=== PATIENT | male | born 1975 | race Caucasian/White ===

== ENCOUNTER 2018-09-30 12:17 | Inpatient (IN) | payer MEDICAID, OTHER ==
[~2018-09-30] VITALS: Ht 185.4 cm; Wt 99.8 kg
[~2018-09-30 12:17] MED LIST: HYDROCODON-ACE1 EA10 PO; KEFLEX500 MG PO
[2018-09-30] MEDS ORDERED: ADVIL200 M1 PO (12:30)
--- NOTE | 2018-09-30 16:15 | NUR ---
PT ARRIVED TO FLOOR VIA STRETCHER. REPORTS PAIN 6/10 IN RUQ. DENEIS NAUSEA. ORIENTED TO ROOM. PT IN 4 POINT SHACKLES. 1 GAURD AT BEDSIDE. CALL LIGHT IN REACH. MORPHIN ADMINSITERED. D5LR @ 85 INFUSING. IN SITE WNL. BOWEL TONES ACTIVE.
--- NOTE | 2018-09-30 17:29 | NUR ---
PT REPORTS NO PAIN IN RUQ AT THIS TIME. NO N/V. CALL LIGHT IN REACH
--- NOTE | 2018-09-30 17:49 | NUR ---
PATIENT IN BED WATCHING TV. ONE GUARD IN ROOM. VITAL SIGNS AND I&O DONE. CALL LIGHT WITHIN REACH. NO OTHER NEEDS AT THIS TIME
--- NOTE | 2018-09-30 18:49 | NUR ---
RUQ PAIN CONTROLLED WITH PRN MORPHINE. NO NAUSEA, SCD'S IN PLACE. 1 GAURD AT BEDSIDE. D5LR AT 85ML/HR.
--- NOTE | 2018-09-30 21:00 | NUR ---
COOP WITH ASSESSMENT, C/O H/A, ICE TO BACK OF NECK AND COLD WET TOWEL TO FOREHEAD GIVEN, LIGHTS DIMMED AND NOISE REDUCED IN ROOM. RA, IVF INFUSING W/O PROBLEMS, NO C/O ABD PAIN OR N/V. GIA 4 POINT SHCKLES. 1 EOCI OFFICER IN ROOM
--- NOTE | 2018-09-30 22:04 | NUR ---
VITALS AND I&OS DONE AND CHARTED. BEDSIDE TABLE AND CALL LIGHT IN REACH. NEITHER GUARD OR PT NEED ANYTHING AT THIS TIME.
--- NOTE | 2018-09-30 23:00 | NUR ---
MEDICATED WITH TYLENOL 650MG PO PER 8/10 H/A.
--- NOTE | 2018-10-01 01:00 | NUR ---
NO FURTHER C/O H/A, N/V OR ABD PAIN. RESTING, EYES CLOSED, ON 4X SHACKLES, 1 EOCI GUARD IN ROOM
--- NOTE | 2018-10-01 01:11 | NUR ---
MEDICATED WITH TORADOL 30MG IV C/O 12/31 ABD PAIN, NO N/V MUCH RELIEVED H/A, NASAL CONGESTION PRESENT, AWAKE, SCDS IN PLACE, 4X SCHACKLES IN PLACE, 1 EOCI GUARD
--- NOTE | 2018-10-01 02:32 | NUR ---
VITALS AND I&OS DONE AND CHARTED. BEDSIDE TABLE AND CALL LIGHT IN REACH. PT NEEDS NOTHING MORE AT THIS TIME.
--- NOTE | 2018-10-01 03:55 | NUR ---
RESTING, EYES CLOSED, NO C/O PAIN, NO N/V, [address]
--- NOTE | 2018-10-01 05:49 | NUR ---
AWAKE, WATCHING TV, C/O ABD 5/10 PAIN, MEDICATED WITH SCHEDULED TYLENOL 650MG UP TO BR, VOIDING QS URINE, NPO X MEDS W SIPS. WEARING 4X POINT SHACKLES. 1 EOCI GUARD IN ROOM
--- NOTE | 2018-10-01 08:29 | NUR ---
PATIENT WAS RESTING, OPENED EYES TO NAME, PATIENT STATES THAT PAIN IS CURRENTLY 6/10 AND REFUSED MORPHINE DUE TO IT CAUSING NAIDU YESTERDAY. TORADOL GIVEN IV AT THIS TIME. PATIENT IS ALERT AND ORIENTED AND HAS TENDERNESS IN THE RUQ. HE REMAINS NPO AT THIS TIME AND HAS 1 GUARD AT BEDSIDE.
--- NOTE | 2018-10-01 09:09 | NUR ---
PATIENT RESTING IN BED. ONE GUARD IN ROOM. VITAL SIGNS AND I&O DONE. CALL LIGHT WITHIN REACH. NO OTHER NEEDS AT THIS TIME
--- NOTE | 2018-10-01 09:37 | NUR ---
PATIENTS PAIN IS CURRENTLY TOLERABLE, WILL GIVEN SCHEDULED TYLENOL AT 1048
--- NOTE | 2018-10-01 10:42 | NUR ---
MED REC COMPLETE. PATIENT TAKES NO CHRONIC MEDICATIONS, BUT WHEN HE HAS PAIN HE STATES HE TAKES 6 IBUPROFEN (1,200 MG).
--- NOTE | 2018-10-01 11:04 | NUR ---
PATIENT STATES PAIN LEVEL IS AT A 2/10, SCHEDULED TYLENOL GIVEN PO AT THIS TIME
--- NOTE | 2018-10-01 13:25 | NUR ---
PT TO OR AT THIS TIME ACCOMPANIED BY 1 GUARD.
--- NOTE | 2018-10-01 17:25 | NUR ---
10/01/18 1725 Eva Elizalde 1716 PATIENT ARRIVES TO PACU UNRESPONSIVE TO PAIN. RESP EVEN AND UNLABORED, BUT SNORING, VERY STIFF JAW, DOES NOT CHANGE WITH JAW THRUST. SATS >95%. 1721 PATIENT OPENS EYES TO VERBAL STIMULI, DOES NOT FOLLOW COMMANDS. ORAL AIRWAY REMOVED. RESP EVEN AND UNLABORED, OXYGEN MASK OFF, ROOM AIR SATS 95%. 1724 PATIENT AWAKE, ANSWERS QUESTIONS APPROPRIATELY, BUT STILL DROWSY. RESP EVEN AND UNLABORED, SATS >95% ON ROOM AIR. DENIES PAIN AT REST. DENIES NAUSEA. ONLY COMPLAINS OF DIZZINESS. PATIENT LAUGHING AND TALKING WITH STAFF.
--- NOTE | 2018-10-01 18:00 | NUR ---
PATIENT MOVED OVER FROM THE STRETCHER TO THE BED, SHACKLES PLACED ON THE PATIENT BY THE GUARD IN THE ROOM. HE HAS 4 SCOPE SITES TO HIS ABDOMEN AND A MARIFER DRAIN. LAP SITES ARE INTACT WITH STERI STRIPS AND SOME BLOODY DRAINAGE PRESENT. PATIENT IS VERY PAINFUL AND STATES PAIN IS CURRENTLY 9/10 WITH NAUSEA AND A SEVERE DRY MOUTH. WATER PROVIDED FOR HIM AT THIS TIME WITH 8MG OF ZOFRAN IV. PULSE OX, SCDS, AND IV FLUID ON AT THIS TIME.
--- NOTE | 2018-10-01 18:47 | NUR ---
DRAINAGE PRESENT TO PATIENT'S ABDOMEN CURRENTLY, WILL CONTINUE TO MONITOR DRAINAGE, PATIENT DENIES NAUSEA AT THIS TIME AND IS TOLERATING JELLO, 7UP, CRACKERS AND BROTH.
--- NOTE | 2018-10-01 19:12 | NUR ---
SHIFT REPORT RECEIVED FROM DAYSHIFT MALVIN BOCANEGRA.CPOX IN PLACE, O2 SAT AND HR WNL. PT DROWSY, RR EVEN AND UNLABORED. PT FROM EOCI, GUARD IN ROOM. FDC RESTRAINTS X4 IN PLACE. LAP SITES X4 NOTED WITH STERI STRIPS, SCANT SANGUINEOUS DRAINAGE NOTED. CALL LIGHT IN REACH. PT DENIES NEEDS.
--- NOTE | 2018-10-01 20:42 | NUR ---
ASSESSMENT COMPLETE. VSS. SCHEDULED MEDS GIVEN (SEE EMAR). PT A/OX4, RATES PAIN 9/10. 0.5 MG IV DILAUDID GIVEN FOR IMMEDIATE PAIN RELIEF ALONG WITH ONE NORCO TABLET (SEE EMAR). IV FLUIDS INFUSING PER MD ORDERS, SITE WNL. PT DENIES FURTHER NEEDS. EOCI RESTRAINTS X4 IN PLACE, GUARD IN ROOM. CALL LIGHT IN REACH.
--- NOTE | 2018-10-01 21:27 | NUR ---
POST OP VSS. PT RATES PAIN TOLERABLE IF SITTING STILL. RR EVEN AND UNLABORED. CALL LIGHT IN REACH, GUARD IN ROOM.
--- NOTE | 2018-10-01 22:19 | NUR ---
I&OS DONE AND CHARTED. PER PT REQUEST I GAVE HIS SOME CRACKERS AND JELLO. BEDSIDE TABLE AND CALL LIGHT IN REACH. PT OR THE GUARD NEED ANYTHING AT THIS TIME.
--- NOTE | 2018-10-01 22:49 | NUR ---
SCHEDULED IV ABX INFUSING (SEE EMAR). IV SITE WNL. PT REPORTS PAIN IS TOLERABLE AND RATES 3/10 WHEN RESTING IN BED. GUARG IN ROOM. LUNCH BOX PROVIDED PER PT REQUEST. CALL LIGHT IN REACH.
--- NOTE | 2018-10-02 01:38 | NUR ---
PT REPORTS 8/10 PAIN, 2 NORCO ADMINSITERED. VSS, I&O'S RECORDED. MARIFER DRAINED, 10 MLS SANGUINEOUS OUTPUT. NO NEW CONCERNS. REMAINING FOOD TRAY AT BEDSIDE PER PT REQUEST. CALL LIGHT IN REACH. IV FLUIDS INFUSING PER MD ORDERS, SITE WNL. GUARD IN ROOM.
--- NOTE | 2018-10-02 03:46 | NUR ---
pt reports 8 pain. 1 motrin administered. no further needs. guard in room. call light in reach.
--- NOTE | 2018-10-02 05:31 | NUR ---
PT HAD A IDA OVERALL. PT A/OX4, PAIN CONTROLLED WITH PO PAIN MEDICATION. LAP SITES X4 OPEN TO AIR WITH STERI STRIPS, SCANT DRY SANGUINEOUS DRAINAGE, MARIFER DRAIN IN PLACE. RESTRAINTS X4, EOCI GUARD IN ROOM. PT USES CALL LIGHT APPROPERIATELY. REGULAR DIET, TOLERATING WELL, BOWEL TONES ACTIVE.
--- NOTE | 2018-10-02 05:55 | NUR ---
PT MOSTLY SLEEPY, OPENS EYES STATES HE IS "OK" WHEN ASK HE WAS GROANING, STATED HE THOUGHT HE HAD A HEADACHE WHEN HE WOKE, BUT IT IS OK. IV FLUIDS INFUSING PER ORDER. GUARD AT BEDSIDE.
--- NOTE | 2018-10-02 06:31 | NUR ---
SCHEDULED ABX INFUSING, IV SITE WNL. VSS AND i&O'S RECORDED. TOOTHPAST PROVIDED PER PT REQUEST. CALL LIGHT IN REACH, GUARD IN ROOM.
--- NOTE | 2018-10-02 07:30 | NUR ---
PATIENT REPORT RECEIVED FROM AVA COOMBS, PATIENT IS ON RA AND HAS A PULSE OX ON. HE IS ASLEEP WITH 1 GUARD AT HIS BEDSIDE. RAILS UP ON THE BED AND BED IS IN THE LOW POSITION.
--- NOTE | 2018-10-02 07:38 | NUR ---
Pt resting awake in bed, hob elevated. Luis drain intact to mid frontal neck. Personal supplies and call light within reach. Pt denies sob, chest pain and uncontrolled neck pain at this time. Call light wihtin reach.
--- NOTE | 2018-10-02 08:02 | NUR ---
PATIENT'S BREAKFAST ORDERED
--- NOTE | 2018-10-02 08:33 | NUR ---
PATIENT STATES THAT ABDOMINAL PAIN IS AT A 8/10 CURRENTLY 2 NORCO PO GIVEN AT THIS TIME. PATIENT IS ALERT AND ORIENTED CURRENTLY WITH 1 GUARD AT BEDSIDE. 4 LAP SITES ARE INTACT WITH STERI STRIPS SOME BLOODY DRAINAGE PRESENT.
--- NOTE | 2018-10-02 09:19 | NUR ---
PATIENT IN BED WATCHING TV. ONE GUARD IN ROOM. VITAL SIGNS AND I&O DONE. CALL LIGHT WITHIN REACH. NO OTHER NEEDS AT THIS TIME
--- NOTE | 2018-10-02 10:05 | NUR ---
patient's pain tolerable when he is sitting still in bed, pain elevates immensly when he gets up to the bathroom. patient refused to ambulate in the hallway at this time. teaching done regarding lizzy drain, 5mls of sero sang drainage emptied at this time.
--- NOTE | 2018-10-02 11:03 | NUR ---
LAB IN THE ROOM DRAWING BLOOD, PATIENTS PAIN CURRENTLY AT A 6, MOTRIN PO GIVEN
--- NOTE | 2018-10-02 11:06 | OR ---
[facility] [address], [place] [address] Signed DATE OF OPERATION: 10/01/2018 SURGEON: Astrid Hardin MD PREOPERATIVE DIAGNOSES: 1. Acute calculous cholecystitis. 2. Prior laparotomy (childhood). POSTOPERATIVE DIAGNOSES: 1. Acute calculous cholecystitis. 2. Extensive intraabdominal adhesions in midline. PROCEDURES PERFORMED: 1. Laparoscopic adhesiolysis. 2. Laparoscopic cholecystectomy with an intraoperative cholangiogram prolonged, complicated, difficult. 3. Surgeon-directed fluoroscopy. ANESTHESIA: General endotracheal; Katerin Chapa CRNA and local 10 mL of 0.25% Marcaine with epinephrine. INDICATIONS: This 43-year-old white man is a prisoner at [facility] and a patient of Dr. Peter. He underwent gallbladder ultrasound yesterday as an outpatient, was found to have acute cholecystitis as well as gallstones, and was admitted given fluid resuscitation, intravenous antibiotics, and parenteral pain medication, now to undergo cholecystectomy. Of note, he had laparotomy in childhood and has had incisional hernia repair by me in the past in the region of the umbilicus at that part of the incision. He understands the risk of bleeding, infection, bile duct injury, need for open procedure, and other unforeseen complications and wished to proceed. FINDINGS: Entry to the abdomen was a challenge on the basis of his prior midline incision. He was found to have extensive adhesions to the midline requiring adhesiolysis. There were bowel loops that were contiguous with the abdominal wall in the region inferior to the umbilicus. Some of these were taken down, but mostly left as is. There was no sign of obstruction. No injury occurred to the bowel despite extensive adhesiolysis to allow for safe entry to the abdomen for laparoscopy. Electronically Signed By: ASTRID HARDIN MD 10/02/18 1106 PATIENT NAME: NARINDER FAN OPERATIVE REPORT DATE OF : 77 REPORT #: [id number] PHYSICIAN: ASTRID HARDIN MD PCP: MAICOL PETER MD REPORT IS CONFIDENTIAL AND NOT TO BE RELEASED WITHOUT AUTHORIZATION [facility] [address], [place] [address] Signed As regard to the gallbladder, it was markedly distended and inflamed. The liver looked normal. Cholangiogram was normal. Gallbladder had at least one large stone and bits of stone debris as well as markedly inflamed mucosa. DESCRIPTION OF PROCEDURE: The patient was brought to the operating room, given a general endotracheal anesthetic. Preoperative antibiotic Ancef has been given. Sequential compression device stockings applied and heparin subcutaneously administered. After satisfactory general endotracheal anesthesia, the abdomen was clipped and prepared with chlorhexidine solution and draped sterilely. He had elaborate tattooing of his abdomen and torso in general. A long midline incision was noted extending from below the xiphoid to just below the umbilicus. After sterile prep and draping with a chlorhexidine solution, an infraumbilical incision several centimeters below the umbilicus itself (outside his tattoo and also outside the previous incision), attempts were made to enter the abdomen through the lower abdominal area. An open attempt was not successful as there appeared to be dense adhesions in the inner table of the fascial layer. This site was abandoned. An epigastric incision was made somewhat above previous incision site in the midline. Fascia was divided and the properitoneal space was encountered and entry to the abdomen was not forthcoming likely in the area of the falciform ligament. Still seeking safe entry to the abdominal cavity, a supraumbilical incision was made preliminary to a Jessi technique. The properitoneal space developed and with all due care apparent peritoneal cavity entry was made. Adhesions were noted. Using an angled 10-mm laparoscope, careful insinuation into the peritoneal cavity was undertaken ultimately allowing for intraabdominal inspection showing a tensely distended gallbladder and chronic and acute inflammatory change. The liver appeared normal. Attempts were then made to pass a trocar under direct visualization in the epigastric incision site. Despite efforts to do so, it could not be well visualized. On that basis, a 5 mm port was placed in the right side of the abdomen, replacing the laparoscope to that site and allowing for lysis of adhesions in the area of the umbilicus. Noted were dense adhesions of omentum, but also bowel loops. Care was taken to be certain there was no injury to the bowel on previous attempts through that site both with blunt and camera technique. There appeared to be none. Extensive lysis of adhesions was undertaken in the midline to allow for safe port site entries. Once satisfied, there was no bowel injury or other contraindication to proceeding in that field. Under direct visualization, the 10 mm port was placed in the supraumbilical port site skirting densely adhered bowel to the abdominal wall in that area. The regular 30 Electronically Signed By: ASTRID HARDIN MD 10/02/18 1106 PATIENT NAME: NARINDER FAN OPERATIVE REPORT DATE OF : 77 REPORT #: [id number] PHYSICIAN: ASTRID HARDIN MD PCP: MAICOL PETER MD REPORT IS CONFIDENTIAL AND NOT TO BE RELEASED WITHOUT AUTHORIZATION [address] [address] Signed degree laparoscope, 10 mm in size, was placed in the supraumbilical port site. Another 5 mm port was placed in the right anterior axillary line. This allowed for elevation of the gallbladder. There were adhesions of the gallbladder and gallbladder so tensely distended it required decompression with a needle device. Once this was complete, the puncture site was grasped and elevated cephalad. Using the laparoscopic grasper, the infundibulum was retracted laterally and using blunt and electrocautery dissection, edematous peritoneum over the inflamed gallbladder was dissected free, ultimately identifying well the cystic duct. Further dissection showed a cystic arterial branch. Clips were applied to it for hemostasis. Once the cystic duct was well identified, a clip was applied across the gallbladder cystic duct junction and transverse choledochotomy was made in the cystic duct. Egress of clear yellow bile was noted. Using the Brush type cholangiocatheter, intraoperative cholangiography was undertaken showing free flow of contrast in the biliary tree with prompt emptying into the duodenum. There was no sign of filling defect or biliary anomaly. There was a pancreatogram incidentally noted. The Catheter was removed and the cystic duct was triply clipped and divided and dissection undertaken in retrograde fashion using electrocautery.The cystic arterial branches that had been clipped were very hemostatic. The gallbladder was dissected free in a retrograde fashion, ultimately placed in an Endobag, and attempts at extraction through the supraumbilical site were unsuccessful. Not wanting to further traumatize the surrounding area where bowel loops were relatively close, the Endobag was extracted through the epigastric port instead. . The gallbladder was opened on the back table and found to have at least one large stone, biliary debris, and acute on chronic inflammatory change. Irrigation was undertaken in the subhepatic space showing no sign of bile leak, bleeding, or other problems. Given the extent of dissection and so forth, a 7-mm flat Jamison drain was placed in the subhepatic space, secured to the skin with nylon suture. The catheter had been brought out at the right lower quadrant incision site. It was later attached to bulb suction. Irrigation was undertaken of the subhepatic space. There was no sign of bile leak, bleeding, or other problems. The trocars were removed under direct visualization Electronically Signed By: ASTRID HARDIN MD 10/02/18 1106 PATIENT NAME: NARINDER FAN OPERATIVE REPORT DATE OF : 77 REPORT #: [id number] PHYSICIAN: ASTRID HARDIN MD PCP: MAICOL PETER MD REPORT IS CONFIDENTIAL AND NOT TO BE RELEASED WITHOUT AUTHORIZATION [facility] [address] [place] [id number] Signed allowing for reapproximation of the fascial edges on the infraumbilical, supraumbilical, and epigastric port sites with 0 Vicryl suture as well as 0 PDS suture. All wounds were copiously irrigated and skin closed with interrupted 3-0 Vicryl. Steri-Strips were applied. The patient was ultimately extubated and transferred to recovery room in good condition having suffered no complications. Sponge, needle, and instrument counts reported as correct x3. The operation was very prolonged, complicated and difficult in large part related to lysis of adhesions to allow entry to the abdomen for laparoscopic resection. Operative time was 4 x usual. Astrid Hardin MD JM/MODL /[id number] cc: Maicol Peter MD [facility] Copies: MAICOL PETER MD ~ Electronically Signed By: ASTRID HARDIN MD 10/02/18 1106 PATIENT NAME: NARINDER FAN OPERATIVE REPORT DATE OF : 77 REPORT #: [id number] PHYSICIAN: ASTRID HARDIN MD PCP: MAICOL PETER MD REPORT IS CONFIDENTIAL AND NOT TO BE RELEASED WITHOUT AUTHORIZATION
--- NOTE | 2018-10-02 11:06 | HP ---
[facility] [address] [place], [place] [address] Signed ADMISSION DATE: 09/30/2018 REASON FOR ADMISSION: Acute calculous cholecystitis. HISTORY OF PRESENT ILLNESS: This 43-year-old man is a prisoner at [facility] and known to me from the past having undergone complex incisional hernia repair in the past two years or so. He tells me that he had the onset of severe right upper abdominal pain yesterday in the evening and [facility] and [facility] and today sent to the [facility] for ultrasound. An ultrasound was performed confirming gallstones and findings consistent with acute calculous cholecystitis. I was called from the Radiology Department asking for what disposition might be appropriate and recommended direct admission rather than return to [facility] or Emergency Room evaluation. In the room, he is now quietly watching TV with a guard at the side and manacled as appropriate. He says he is still having right upper abdominal pain, but no nausea. He is not hungry. PAST MEDICAL HISTORY: Includes a complex incisional hernia repair. This was in the past two years or so. He denies any prior history of hepatitis and has no ongoing medical problems he says. REVIEW OF SYSTEMS: He denies any shortness of breath or chest pain. He has had no dysphagia, dysuria or hematemesis. Denies any blood per rectum. He does have concurrent reflux type symptoms with substernal burning pain. PHYSICAL EXAMINATION: GENERAL: Well-developed, well-nourished, muscular man, who speaks [place] well. He does not look systemically toxic. NECK: Trachea is midline. CHEST: Clear. HEART: Regular without murmur. ABDOMEN: Nondistended and generally soft. He has marked tenderness in the right subcostal area, but no mass. There is no ascites. Elaborate tattoos are noted on the Electronically Signed By: ASTRID HARDIN MD 10/02/18 1106 PATIENT NAME: NARINDER FAN HISTORY AND PHYSICAL DATE OF : 77 REPORT #: [id number] PHYSICIAN: ASTRID HARDIN MD PCP: ETTA PETER MD REPORT IS CONFIDENTIAL AND NOT TO BE RELEASED WITHOUT AUTHORIZATION [facility] [address] [place], [place] [address] Signed abdomen and elsewhere. EXTREMITIES: Show no clubbing, cyanosis, or edema. LABORATORY DATA: Lab studies have not yet been drawn, but will be soon. I have not reviewed the ultrasound findings, only the report that has been verbally administered, which includes gallstones. ASSESSMENT: The patient has clinical findings of acute cholecystitis and ultrasound is suggestive of that as well. He is admitted for further evaluation and care to include fluid resuscitation, IV antibiotics, parenteral pain medications and ultimately cholecystectomy. PLAN: I discussed with Pathophysiology the problem with him and recommendation of cholecystectomy. A laparoscopic or open approach may be advisable depending on clinical findings. It is notable that he has a long midline incision that required an incisional hernia repair. I am uncertain of the reason for the laparotomy, but I believe it was related to trauma of some kind in the past. I will further investigate that and review old records. Astrid Hardin MD JM/MODL /[id number] cc: Dr. Peter [facility] Copies: ~ Electronically Signed By: ASTRID HARDIN MD 10/02/18 1106 PATIENT NAME: NARINDER FAN HISTORY AND PHYSICAL DATE OF : 77 REPORT #: [id number] PHYSICIAN: ASTRID HARDIN MD PCP: ETTA PETER MD REPORT IS CONFIDENTIAL AND NOT TO BE RELEASED WITHOUT AUTHORIZATION
--- NOTE | 2018-10-02 11:31 | NUR ---
patient ambulated in the hallway to the nurses station from his room, he is painful with ambulation but tolerated walk fair. patient is steady on his feet and continues to rate pain at 6/10 or above.
--- NOTE | 2018-10-02 13:02 | NUR ---
DOCTOR WILFRED CALLED AND UPDATED ON PATIENT'S LABS, MD COMING IN TO SEE THE PATIENT AND POSSIBLY SEND HIM HOME. HE HAS BEEN EATING 100% OF HIS FOOD AT MEAL TIME.
--- NOTE | 2018-10-02 13:11 | NUR ---
PATIENT RESTING IN BED. ONE GUARD IN ROOM. VITAL SIGNS AND I&O DONE. CALL LIGHT WITHIN REACH. NO OTHER NEEDS AT THIS TIME
--- NOTE | 2018-10-02 14:19 | NUR ---
DOCTOR HARDIN IN THE ROOM TO EVALUATE PATIENT AT THIS TIME, PATIENT'S MARIFER PULLED AND IV SALINE LOCKED AND PATIENT SHOWEN HOW TO USE THE IS. IS UP TO 1750 AT THIS TIME WITH NO C/O PAIN DURING USE. GUARD REMAINS AT BEDSIDE AND PAIN CURRENTLY AT A 6/10.
--- NOTE | 2018-10-02 15:02 | NUR ---
IV ABX GIVEN AT THIS TIME, PULSE OX ON AND IV SALINE LOCKED.
--- NOTE | 2018-10-02 15:18 | NUR ---
PATIENT UP IN THE HALLWAY AMBULATING WITH GUARD. PATIENT TOLERATING PAIN WELL WHILE UP IN THE HALLWAY AND MADE IT 1 LAP AROUND THE NURSES STATION.
--- NOTE | 2018-10-02 17:11 | NUR ---
PATIENT MOVED UP IN BED AND DINNER GIVEN TO HIM AT THIS TIME, PATIENTS PAIN CURRENTLY AT A 5/10 WHICH IS TOLERABLE AT THIS TIME. HE DENIES ANY NAUSEA, LAP SITES ARE CDI WITH STERI STRIPS OLD DRAINAGE NOTED
--- NOTE | 2018-10-02 18:38 | NUR ---
PATIENT HAS HAD BETTER PAIN CONTROL THIS AFTERNOON, HE HAS BEEN RECEIVING TYLENOL AND MOTRIN SCHEDULED SINCE DOCTOR WILFRED'S VISIT THIS AFTERNOON AND THEN NORCO PRN BREAKTHROUGH PAIN. CURRENTLY THE PATIENT RATES HIS PAIN AT A 4/10 WHICH IS THE LOWEST I HAVE HAD HIM RATE HIS PAIN. PATIENT HAS BEEN USING HIS IS EFFECTIVLY AND AMBULATING IN THE HALLWAY WITH HIS GUARD. ABDOINAL INCISIONS X4 ARE CDI WITH STERI STRIPS AND THE MARIFER WAS REMOVED THIS AFTERNOON BY DOCTOR WILFRED. HE HAS ACTIVE BOWEL TONES AND HAD A VERY SMALL BM TODAY.
--- NOTE | 2018-10-02 19:00 | NUR ---
SHIFT REPORT RECEIVED FROM PATRICIAALARNALDO BOCANEGRA. PT AWAKE IN BED, RR EVEN AND UNLABORED. GUARD IN ROOM, [facility]I RESTRAINTS X4 IN PLACE. PT DENIES NEEDS AT THIS TIME. LAP SITES X4 NOTED, NO NEW DRAINAGE. CALL LIGHT IN REACH.
--- NOTE | 2018-10-02 21:30 | NUR ---
ASSESSMENT COMPLETE. SCHEDUELED MEDICATIONS GIVE, SEE EMAR. PT RATES PAIN 4/10 AND STATES, "I FEEL GOOD RIGHT NOW". LAP SITES OPEN TO AIR, WITH EXCEPTION OF ONE LAP SITE COVERED BY BANDAID. NO DRAINING OR SHADOWING NOTED. PT SALINE LOCKED, A/OX4. RESTRAINTS X4 IN PLACE, GUARD IN ROOM.
--- NOTE | 2018-10-02 21:38 | NUR ---
VITALS AND I&OS DONE AND CHARTED. BEDSIDE TABLE AND CALL LIGHT IN REACH.
--- NOTE | 2018-10-02 23:14 | NUR ---
PRIMARY RN REQUESTED THIS RN GIVE MEDS. MEDICATIONS GIVEN (SEE MAR). pt RATED PAIN 4/10. GUARD AT BEDSIDE. pt AND GUARD AMBULATING IN PRESTON.
--- NOTE | 2018-10-03 00:49 | NUR ---
THIS RN SAW GUARD AND PT IN HALLWAY WALKING TO NURSE'S STATION. PT STATES, "I NEED SOMETHING TO GO TO THE BATHROOM, I FEEL CONSTIPATED". WARM PRUNE JUICE GIVEN, PT ALSO INSTRUCTED TO GO ON A WALK AFTER FINISHING PRUNE JUICE. PT VERBALIZED UNDERSTANDING. NO FURTHER NEEDS, CALL LIGHT IN REACH.
--- NOTE | 2018-10-03 01:05 | NUR ---
PT AMBULATING IN HALLWAY WITH EOCI GUARD. CHONG X4 IN PLACE.
--- NOTE | 2018-10-03 01:30 | NUR ---
ASSESSMENT COMPLETE. SCHEDULED TYLENOL GIVEN. NO NEW CONCERNS, LAP SITES X4 OPEN TO AIR, DRY SANGUINEOUS SCANT DRAINAGE NOTED WITH STERI STRIPS. PT RATES PAIN 1-2/10. NO NEEDS AT THIS TIME, PT APPEARS CONTENT. PT CONTINUES TO EXPRESS INABILITY TO HAVE BM. ICE CREAM GIVEN PER PT REQUEST TO TRY AND STIMULATE BM. CALL LIGHT IN REACH.
--- NOTE | 2018-10-03 04:29 | NUR ---
scheduled motrin adninistered. pt reports tolerable 3/10 pain. no further needs. guard in room. call light in reach.
--- NOTE | 2018-10-03 06:07 | NUR ---
VITALS AND I&OS DONE AND CHARTED. FRESH ICE WATER GIVEN. BEDSIDE TABLE AND CALL LIGHT IN REACH. EMPTIED GARBAGE. TOOK BREAKFAST ORDER. I WILL CALL IT IN. PT NEEDS NOTHING MORE AT THIS TIME.
--- NOTE | 2018-10-03 07:33 | NUR ---
Pt awake, alert and oriented x3. Pt on ra, resp even and non labored. Pt reports abd pain is tolerable. Personal supllies and call light within reach. One vice squad police officer in room with pt. No needs at this time.
--- NOTE | 2018-10-03 08:13 | NUR ---
PT HAD A GREAT NIGHT. PAIN VERY WELL CONTROLLED WITH SCHEDULED TYLENOL AND MOTRIN. NO NORCO NEEDED. PT A/OX4, AMBULATES SBA. PT EOCI, GUARD IN ROOOM W/ X4 EOCI RESTRAINTS. LAP SITES X4 OPEN TO AIR, SCANT DRY DRAINAGE NOTED WITH STERI STRIPS. PT ON REGULAR DIET, TOLERATING WELL, NO NAUSEA.
--- NOTE | 2018-10-03 09:18 | NUR ---
PATIENT RESTING IN BED. ONE GUARD AND RN IN ROOM. VITAL SIGNS AND I&O DONE. CALL LIGHT WITHIN REACH. NO OTHER NEEDS AT THIS TIME
--- NOTE | 2018-10-03 10:42 | NUR ---
PATIENT UP AND AMBULATING WITH A GUARD TWO LAPS IN THE HALLWAY
--- NOTE | 2018-10-03 10:46 | NUR ---
Pt up in hallway ambulating with parole or probation officer. Pt tolerating very well. Pt reports his pain is tolerable. Pt has no needs at this time.
[2018-10-03] MEDS ORDERED: MAPAP325 MG PO (11:25)
[2018-10-03] MEDS ORDERED: IBUPROFEN600 MG PO (11:25)
[2018-10-03] MEDS ORDERED: HYDROCODON-ACE1 EA10 PO (11:25)
--- NOTE | 2018-10-03 13:20 | NUR ---
PATIENT IN BED WATCHING TV. ONE SUPERVISOR RESEARCH KENNEL IN ROOM. VITAL SIGNS AND I&O DONE. CALL LIGHT WITHIN REACH. NO OTHER NEEDS AT THIS TIME
--- NOTE | 2018-10-05 15:31 | DS ---
[facility] [address], [place] [address] Signed ADMISSION DATE: 09/30/2018 DISCHARGE DATE: 10/03/2018 REASON FOR ADMISSION: This 43-year-old man is a prisoner at [facility] and known to me from the past having undergone complex incisional hernia repair two years ago. He had the sudden onset of severe right upper abdominal pain the day prior to admission and [facility] after hours and was kept in the [facility] until day time and was then sent to [facility] for ultrasound. The ultrasound was performed, confirming gallstones. He was directly admitted from the radiology department for direct admission for acute calculous cholecystitis. PERTINENT PHYSICAL EXAMINATION: GENERAL: Shows a well-developed, well-nourished, muscular man who speaks Albanian well. He does not look systemically toxic. HEENT: Trachea midline. CHEST: Clear. HEART: Regular without murmur. ABDOMEN: Nondistended and generally soft. He has marked tenderness in the right subcostal area, but no masses, no ascites. Elaborate tattoos are noted on the abdomen and elsewhere. LABORATORY STUDIES: At admission showed a white count of 7.0, hematocrit 43, platelets 258,000. Chem profile showing normal electrolytes. Creatinine 0.95, bilirubin of 0.6. Liver enzymes normal. Lipase 11. HOSPITAL COURSE: He was admitted, given fluid resuscitation, intravenous antibiotics, parenteral pain medication, and readied for operation. He had improvement of his symptoms overall with the aforementioned methods of intervention, but still had subcostal tenderness. On October 01, he underwent laparoscopic cholecystectomy with intraoperative cholangiogram. Of special note, he had extensive intra-abdominal adhesions to the midline from prior extensive laparotomy. This required a considerable amount of time for adhesiolysis simply to allow for safe access to the abdomen for cholecystectomy. The operation was performed without problem. His gallbladder was acutely inflamed and had multiple stones. Cholangiogram was normal. Postoperatively, he was able to eat well and looked quite well overall, but was Electronically Signed By: ASTRID HARDIN MD 10/05/18 1531 PATIENT NAME: NARINDER FAN DISCHARGE SUMMARY DATE OF : 77 REPORT #: [id number] PHYSICIAN: ASTRID HARDIN MD PCP: MAICOL PETER MD REPORT IS CONFIDENTIAL AND NOT TO BE RELEASED WITHOUT AUTHORIZATION [facility] [address], [place] [address] Signed exquisitely tender in the abdomen and very limited in his ability to ambulate. He was found to have lab studies showing a normal white count of 8.7, hematocrit of 38.3, and liver enzymes that were normal. The following day, he is clinically much better, though his AST and ALT were elevated, alkaline phosphatase and bilirubin normal. Notably, his lactate dehydrogenase was elevated at 377, the day before 122. The significance of this is uncertain. Since he is doing so well now, tolerating oral intake, ambulating well, and having no significant abdominal pain as managed by oral analgesics, he will be discharged back to the half-way. No doubt to be continued [facility]. He is instructed to lift no more than 20 pounds for the next 2 weeks. He may shower and should leave Steri-Strips on. FOLLOWUP PLAN: To see him in the half-way clinic when I next go there. DISCHARGE MEDICATIONS: 1. Ibuprofen 600 mg p.o. q.6 hours p.r.n. pain, #30, refill 1. 2. [place] 5/325 one to two p.o. q.4 hours as needed for pain, quantity #10. 3. Tylenol 650 mg p.o. q.6 hours p.r.n. pain, #30, refill 2. DISCHARGE DIAGNOSES: 1. Acute calculous cholecystitis. 2. 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 3. Status post laparoscopic cholecystectomy with intraoperative cholangiogram in advance and complex laparoscopic adhesiolysis. 4. History of abdominal midline laparotomy for trauma as in childhood. 5. Repair of supraumbilical incisional hernia in the past. MD VINCENZO Sanchez/MODL /[id number] cc: Dr. Maicol Peter Electronically Signed By: ASTRID HARDIN MD 10/05/18 1531 PATIENT NAME: NARINDER FAN DISCHARGE SUMMARY DATE OF : 77 REPORT #: [id number] PHYSICIAN: ASTRID HARDIN MD PCP: MAICOL PETER MD REPORT IS CONFIDENTIAL AND NOT TO BE RELEASED WITHOUT AUTHORIZATION [address] [address] Signed BETH Chen Copies: ~ Electronically Signed By: ASTRID HARDIN MD 10/05/18 1531 PATIENT NAME: FANNARINDER DISCHARGE SUMMARY DATE OF : 77 REPORT #: [id number] PHYSICIAN: ASTRID HARDIN MD PCP: MAICOL PETER MD REPORT IS CONFIDENTIAL AND NOT TO BE RELEASED WITHOUT AUTHORIZATION
== END 2018-10-03 14:15 | disposition home or self-care (01) | DRG 419 ==
LOC: MS 12:17 → DS 12:17 → MS 16:10 → DS 16:10 → EDSTATUS 18:47 → MS 10-03 14:15
PROVIDERS: ADMIT Surgery
PROC: BF101ZZ Fluoroscopy of Bile Ducts using Low Osmolar Contrast (ICD-10-PCS; 2018-10-01)
PROC: 0FT44ZZ Resection of Gallbladder, Percutaneous Endoscopic Approach (ICD-10-PCS; principal; 2018-10-01 12:00)
PROC: 0DNU4ZZ Release Omentum, Percutaneous Endoscopic Approach (ICD-10-PCS; 2018-10-01 12:00)
DX: K80.12 Calculus of gallbladder with acute and chronic cholecystitis without obstruction (principal); K66.0 Peritoneal adhesions (postprocedural) (postinfection); R74.0 Nonspecific elevation of levels of transaminase and lactic acid dehydrogenase [LDH]
CPT/HCPCS: 00790; 36415; 74300; 80053; 82247; 82465; 83615; 83690; 84100; 84478; 84550; 85025; J0330; J0690; J1100; J1170; J1644; J1885; J2250; J2270; J2405; J2550; J2704; J3010; J7120; Q9967

== ENCOUNTER 2018-10-07 11:04 | Emergency (ER) | payer OTHER ==
[~2018-10-07] VITALS: Ht 185.4 cm; Wt 99.8 kg
[~2018-10-07 11:04] MED LIST changes: +ADVIL200 M1 PO; +IBUPROFEN600 MG PO; +MAPAP325 MG PO
[2018-10-07] MEDS ORDERED: FLOMAX0.4 MG PO (11:18)
[2018-10-07] MEDS ORDERED: ULTRAM50 MG PO (11:18)
== END 2018-10-07 12:55 | disposition home or self-care (01) ==
LOC: ED 11:04
DX: R74.0 Nonspecific elevation of levels of transaminase and lactic acid dehydrogenase [LDH] (principal); Z91.041 Radiographic dye allergy status; Z88.5 Allergy status to narcotic agent; Z79.899 Other long term (current) drug therapy
CPT/HCPCS: 74177; 80053; 83690; 85025; 96361; 99284-25; C9113; J1200; J7030; Q9967